=== PATIENT | female | born 1975 | race Caucasian/White ===

== ENCOUNTER → 2019-01-19 | Outpatient (CLI) | payer BC ==
--- NOTE | 2019-01-27 23:50 | SLEEP ---
[address] [address] SLEEP STUDY REPORT Name: NIYAH SMITH Room: [facility]#: [id number] Admission: 01/19/19 Attend Phys: Danita Marcos Discharge: Date of : 71 Report #: [id number] THIS REPORT FOR: //name// CC: JEWELL Virgen This study has been reviewed in its entirety by a board certified sleep specialist DATE OF SERVICE: 01/20/2019 SLEEP STUDY ATTENDING PHYSICIAN: Jewell Mccann DO The patient is 43 years old who weighs 223 pounds with a BMI of 34.9. The patient's Montrose score was 3. The patient underwent home sleep study performed by [facility]. Total recording time was 520 minutes. During the night study, the patient had 20 obstructive apneas, 2 central and no mixed apneas and 57 hypopneas. The patient's apnea hypopnea index was 9.1 per hour with a supine index of 7.3 per hour. Nocturnal oximetry study revealed an average oxygen saturation of 94% with a lowest of 70%. 61 minutes were spent in oxygen saturation of less than 90% and 5 minutes with saturation of less than 85%. Mean heart rate was 64 beats per minute with a maximum of 113 beats per minute. IMPRESSION: 1. Mild sleep apnea-hypopnea syndrome at an AHI of 9.1 per hour. 2. Fsnr-kg-[id number] nocturnal hypoxia secondary to obstructive sleep apnea and suspected hypoventilation. RECOMMENDATIONS: 1. If the patient is clinically symptomatic or has comorbid conditions, then the patient's mild sleep apnea can be treated with either oral appliance as recommended by the dentist versus a trial of CPAP. 2. Weight loss is strongly advised. 3. Avoid [employer] P[employer] depressants. 4. If the patient does not undergo CPAP, then the patient would meet the criteria for nocturnal oxygen at 2 liters. 5. Avoid [place] [place] [address] SLEEP STUDY REPORT Name: NIYAH SMITH Room: [facility]#: [id number] Admission: 01/19/19 Attend Phys: Danita Marcos Discharge: Date of : 71 Report #: [id number] 6. Cautioned regarding driving until symptoms of sleep apnea resolve with the above recommendations. <ELECTRONICALLY SIGNED> By: Ismael Desai MD 01/27/19 2350 [id number] Desai MD /nt
== END ==
LOC: M.SLEEPLAB
DX: G47.33 Obstructive sleep apnea (adult) (pediatric) (principal); I10 Essential (primary) hypertension; R09.02 Hypoxemia; R06.83 Snoring; R53.83 Other fatigue

== ENCOUNTER → 2019-01-19 | Outpatient (CLI) | payer OTHER | LOC: M.CT 08:30 | DX: Z13.6 Encounter for screening for cardiovascular disorders (principal); I25.10 Atherosclerotic heart disease of native coronary artery without angina pectoris ==

== ENCOUNTER → 2019-02-09 | Outpatient (CLI) | payer BC ==
--- NOTE | 2019-02-14 19:26 | SLEEP ---
[address] [address] SLEEP STUDY REPORT Name: NIYAH SMITH Room: [facility]#: [id number] Admission: 02/09/19 Attend Phys: Danita Marcos Discharge: Date of : 71 Report #: [id number] THIS REPORT FOR: //name// CC: JEWELL Virgen This study has been reviewed in its entirety by a board certified sleep specialist DATE OF SERVICE: 02/09/2019 SLEEP STUDY ATTENDING PHYSICIAN: Dr. Jewell Mccann. The patient is a 44-year-old who weighs 219 pounds with a BMI of 34.3. The patient had a previous sleep study and was diagnosed with sleep apnea. The patient was referred back to [facility] for CPAP titration study. During the night study, the patient spent 435 minutes in bed and slept for 352 minutes with a sleep efficiency of 81%. Sleep latency was 15.9 minutes with a REM latency of 165 minutes. Overall, sleep architecture showed normal stage 1 and stage 2 sleep, increased slow wave and increased REM sleep. EKG monitoring revealed normal sinus rhythm. No sustained arrhythmias observed. PLMS were seen at an index of 41 per hour and 6 per hour caused EEG arousals. The patient was started on CPAP at a pressure of 5 cm water and titrated up to 9 cm water. At the final pressure, the patient slept for 27 minutes including lateral REM sleep. The patient's AHI was reduced to 0 per hour and oxygen saturation remained above 92%. IMPRESSION: 1. Sleep apnea diagnosed by previous sleep study. 2. 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 RECOMMENDATIONS: 1. CPAP at 9 cm water completely eliminated the patient's sleep apnea and should be used on a nightly basis. 2. Follow up in 4-6 weeks to assess compliance with CPAP and to document clinical improvement. 3. Weight loss is strongly advised. 4. Avoid [employer] depressants. 5. Cautioned regarding driving until symptoms of sleep apnea resolve with the [place] [address] SLEEP STUDY REPORT Name: NIYAH SMITH Room: [facility]#: [id number] Admission: 02/09/19 Attend Phys: Danita Marcos Discharge: Date of : 71 Report #: [id number] 6. The patient should also be further evaluated for symptoms of restless legs during the day and if present, it can be treated with dopaminergic agonist agents. <ELECTRONICALLY SIGNED> By: Ismael Desai MD 02/14/19 [id number] Desai MD /nt
== END ==
LOC: M.SLEEPLAB 20:00
DX: G47.30 Sleep apnea, unspecified (principal); E66.9 Obesity, unspecified; I10 Essential (primary) hypertension; J45.909 Unspecified asthma, uncomplicated; Z72.0 Tobacco use